=== PATIENT | female | born 1970 | race Caucasian/White ===

== ENCOUNTER 2024-07-18 10:52 | Emergency (ER) | payer MEDICARE, OTHER, SELFPAY ==
[2024-07-18 10:57] VITALS: BP 119/80
[2024-07-18 10:59] VITALS: BMI 46.0
[2024-07-18 11:00] VITALS: BP 119/80; BP 135/65
--- NOTE | 2024-07-18 11:32 | ED.GENMED ---
Addendum entered and electronically signed by Darek Kovacs DO 07/18/24 13:31:
Update PDMP noted, patient's chronic pain syndrome,
Labs noted Doppler completed antibiotics infused awaiting Doppler report
Strong bedside Doppler pulses documented by RN
Original Note:
History of Present Illness
General
Chief Complaint: Extremity Pain (non-traumatic)
Source: patient and records
Exam Limitations: none
Time Seen by Provider: 07/18/24 11:11
Nursing documentation reviewed up to this point in time: agreed with
History of Present Illness
History of Present Illness:
54-year-old female history of venous stasis, ex-smoker mental health illness chronic back pain, presents with pain in her right lower extremity site of cellulitis also pain into her right foot, warmth and redness for a day or 2, not currently on
antibiotics, uses chronic pain meds for her back, no fevers no nausea no vomiting was referred to see vascular surgeon apparently could not walk could make it to the appointment
Past History
Past History
ED Past Medical History: Arrthythmia (Type uncertain ), Fibromyalgia, Hypercholesterolemia, Hypothyroidism, Psychiatric (Anxiety, depression), Other (Chronic back pain , History of Kidney stones, Cellulitis, Colitis,) and Other (Depression, small
intestinal bacterial overgrowth)
ED Past Surgical History: Cholecystectomy, Tonsilectomy and Other (kidney stone extraction.)
Social History
Tobacco: Former smoker
Alcohol: None
Drug: None
Personal: Single
Living: alone
Employment: Disabled
Family History
Family History: Negative Sudden (or syncope)
Phy Exam
Physical Exam
Physical Exam:
Physical Exam
General: Chronically ill-appearing female looks older than stated
Neck: No jaundice
Heart: s1/s2 regular rate and rhythm, no murmur. equal radial pulses.
Lungs: no acute respiratory distress. clear bilaterally
Abdomen: Obese not tender
Neuro: alert and oriented. no focal neurological deficits
Skin: no rash
Psychiatric: well kept. interactive and cooperative
Extremities: Warmth redness venous stasis changes right anterior greater than posterior calf, no palpable cords, present diminished pulses right lower EXTR
Course
Orders/Labs/Results
Orders:
Orders
07/18/24 11:22
CBC/With Diff [Complete Blood Count/With Diff] Urgent
Comprehensive Metabolic Panel Urgent
07/18/24 11:29
HYDROmorphone [Dilaudid] 1 mg IV NOW STA
US Periph Venous LOWER Ext RT Urgent
Comment:
Reason For Exam: swelling
07/18/24 11:30
CeFAZolin 2 GRAM [Ancef] 2 grams in 10 ml IV NOW
Abnormal Lab Results
07/18/24
11:22
MCV 76.9 L fL
(81.0-99.0)
MCH 24.5 L pg
(27.0-31.0)
MCHC 31.9 L g/dL
(33.0-37.0)
RDW 14.7 H %
(11.5-14.5)
07/18/24 11:22
Vital Signs
Initial and Last Documented VS:
Initial Vital Signs
BP Pulse Ox
119/80 98
07/18/24 10:57 07/18/24 10:57
Last Documented Vital Signs
Temp Pulse Resp BP Pulse Ox
98.3 F 51 18 135/65 97
07/18/24 11:00 07/18/24 11:00 07/18/24 11:00 07/18/24 11:00 07/18/24 11:00
MDM/Problems Addressed
Differential Diagnosis Includes:
Venous stasis dermatitis cellulitis peripheral vascular disease DVT conceivably arterial insufficiency
MDM/Problems Addressed:
Right lower extremity pain is
Chronic conditions affecting care:
Venous stasis chronic
Acute Exacerbation and/or Progression of Chronic Illness:
Venous stasis chronic pain
*Radiology
Radiology exam reviewed: preliminary read by ED provider
*Pulse Oximetry
Patient hypoxic: no
*Critical Care Note
Total Time (30-74mins, 75-104mins- exclusive of procedures): Not Applicable
ED Attending Note
-
Portions of this chart may have been created with voice recognition software.� Occasional wrong word or��sound alike� substitutions may have occurred due to the inherent limitations of voice recognition software.
Discharge Plan
Departure
Prescriptions:
No Action
sertraline 100 MG tablet
150 mg PO DAILY
fluticasone propionate 16 GRAM spray,suspension
1 spray intranasal HS
trazodone 150 MG tablet
150 mg PO HS
levothyroxine 75 MCG tablet
200 mcg PO DAILY
nortriptyline 25 MG capsule
75 mg PO HS
aripiprazole [Abilify] 30 MG tablet
30 mg PO DAILY
cetirizine 10 MG tablet
10 mg PO HS
alprazolam 1 MG tablet
1 mg PO TID Qty: 10 0RF
pantoprazole 40 MG tablet,delayed release (DR/EC)
40 mg PO DAILY Qty: 30 0RF
oxycodone 10 MG tablet
10 mg PO Q6HPRN PRN (Reason: severe pain) Qty: 8 0RF
ondansetron 4 mg tablet,disintegrating
4 mg PO TIDPRN PRN (Reason: nausea/vomiting) Qty: 10 0RF
lactulose 20 gram/30 mL solution
20 g PO DAILY Qty: 1200 0RF
Rx Instructions:
use for 1 week/7 days
Interventions
Interventions:
*Risk Screen - Suicide Last Done: 07/18/24 11:00
*General Assessment Last Done: 07/18/24 11:00
*Neglect/Abuse Screening Last Done: 07/18/24 11:00
*ED- Fall Risk Assessment Last Done: 07/18/24 11:00
*ED COVID-19 Vaccine History Last Done: 07/18/24 11:00
ED-Skin Assessment Last Done: 07/18/24 11:06
ED-Peripheral Vascular Assessment Last Done: 07/18/24 11:31
ED-Musculoskeletal Assessment Last Done: 07/18/24 11:06
Discharge Date and Time
Print Language: NORWE[place]
[2024-07-18 11:33] LABS: % Basophils 0.5 % (0-2); % Eosinophils 1.3 % (0-6); % Immature Granulocytes 0.2 % (0-0.5); % Lymphocytes 24.5 % (20.5-51.1); % Monocytes 6.9 % (1.7-9.3); % Neutrophils 66.6 % (42.2-75.2); Absolute Eosinophils 0.1 10^3/uL (0-0.7); Absolute Lymphocytes 1.6 10^3/uL (1.2-3.4); Absolute Monocytes 0.4 10^3/uL (0.1-0.6); Absolute Neutrophils 4.3 10^3/uL (1.4-6.5); Hematocrit 38.9 % (37.0-47.0); Hemoglobin 12.4 g/dL (12.0-16.0); Mean Corp Hgb Conc. 31.9 g/dL (33.0-37.0); Mean Corpuscular Hgb 24.5 pg (27.0-31.0); Mean Corpuscular Volume 76.9 fL (81.0-99.0); Mean Platelet Volume 9.3 fL (7.4-10.4); Nucleated Red Blood Cells % 0 %; Platelet Count 246 10^3/uL (130-400); Red Blood Cell Count 5.06 10^6/uL (4.20-5.40); Red Cell Dist. Width 14.7 % (11.5-14.5); White Blood Cell Count 6.4 10^3/uL (4.8-10.8)
[2024-07-18] MEDS: DILAUDID 1 MG IV (11:38)
[2024-07-18] MEDS: ANCEF 10 IV (11:39)
[2024-07-18 11:46] LABS: ALT (SGPT) 22 U/L (0-35); AST (SGOT) 21 U/L (14-36); Albumin 3.8 g/dl (3.5-5.0); Alkaline Phosphatase 115 U/L (38-126); Blood Urea Nitrogen 11 mg/dl (7-17); Calcium 9.5 mg/dl (8.4-10.2); Carbon Dioxide 30 mmol/L (22-30); Chloride 104 mmol/L (98-107); Estimated Creatinine Clearance 109 ml/min; Glucose 110 mg/dl (70-99); Potassium 3.6 mmol/L (3.5-5.1); Sodium 143 mmol/L (135-145); Total Bilirubin 0.7 mg/dl (0.2-1.3); Total Protein 6.6 g/dl (6.3-8.2); eGFR > 60.00
[2024-07-18 12:00] VITALS: BP 155/55
[2024-07-18] MEDS: ROXICODONE 10 MG PO (14:40)
== END 2024-07-18 18:00 | disposition home or self-care (01) ==
LOC: EMR 10:52
PROVIDERS: EMERGENCY PHYSICIAN Emergency Medicine; FAMILY PHYSICIAN Nurse Practitioner Adult Health
DX: L03.115 Cellulitis of right lower limb (principal); I87.8 Other specified disorders of veins; G89.29 Other chronic pain; E03.9 Hypothyroidism, unspecified; E78.00 Pure hypercholesterolemia, unspecified; Z87.891 Personal history of nicotine dependence
CPT/HCPCS: 99284; 96374; 96375; 80053; 85025; 93971